=== PATIENT | female | born 1970 | race Caucasian/White ===

== ENCOUNTER → 2017-04-13 | Outpatient (CLI) | payer OTHER | LOC: FIMAGING 14:49 | PROVIDERS: ATTEND Family Medicine | DX: R10.11 Right upper quadrant pain (principal); K76.9 Liver disease, unspecified ==

== ENCOUNTER → 2017-06-24 | Outpatient (CLI) | payer OTHER | LOC: FIMAGING 15:27 | PROVIDERS: ATTEND Family Medicine | DX: Z12.31 Encounter for screening mammogram for malignant neoplasm of breast (principal) | CPT/HCPCS: G0202 ==